=== PATIENT | male | born 1945 | race Caucasian/White ===

== ENCOUNTER → 2022-07-27 11:17 | Outpatient (CLI) | payer MEDICARE, OTHER, SELFPAY ==
[2022-07-27 12:15] LABS: Hematocrit 38.4 % (41-53); Hemoglobin 12.7 g/dL (13.5-17.5); Mean Corpuscular Hemoglobin 29.4 PG (26-34); Mean Corpuscular Volume 88.9 fL (80-100); Platelet Count 205 X10^3/uL (150-400); Red Blood Cell Count 4.32 X10^6/uL (4.5-5.9); Red Cell Distribution Width 13.8 % (11.6-14.8); White Blood Cell Count 4.9 X10^3/uL (4.5-11.0)
[2022-07-27 13:04] LABS: Alanine Aminotransferase 25 IU/L (<50); Albumin 4.3 g/dL (3.5-5.0); Albumin Globulin Ratio 1.3 (1.0-2.8); Alkaline Phosphatase 98 U/L (38-126); Aspartate Aminotransferase 25 IU/L (17-59); BUN Creatinine Ratio 25.7 (6-22); Bilirubin Total 0.3 mg/dL (0.2-1.3); Blood Urea Nitrogen 28 mg/dL (9-20); Calcium 9.5 mg/dL (8.4-10.2); Carbon Dioxide 30 mmol/L (22-32); Chloride 103 mmol/L (98-107); Cholesterol 134 mg/dL (140-199); Estimated Glomerular Filt Rate > 60 mL/min (>60); Globulin 3.4 g/dL (1.7-4.1); Glucose 119 mg/dL (80-110); HDL Cholesterol 65 mg/dL (40-60); HEMOLYSIS < 15 (0-50); LDL Cholesterol Calculated 59 mg/dL (<100); Potassium 5.1 mmol/L (3.4-5.1); Sodium 137 mmol/L (137-145); Total Protein 7.7 g/dL (6.3-8.2); Triglycerides 50 mg/dL (35-150)
[2022-07-27 13:29] LABS: Prostate Specific Antigen Scrn 2.55 ng/mL (0.1-4.0)
[2022-07-27 15:34] LABS: Creatinine Urine Random 42.7 mg/dL
[2022-07-27 15:42] LABS: Microalbumin Urine Random < 0.6 mg/dL (0-1.6)
== END ==
PROVIDERS: PCP Family Medicine; Referring Provider Family Medicine; Visit Provider Family Medicine
DX: E11.9 Type 2 diabetes mellitus without complications (principal); Z12.5 Encounter for screening for malignant neoplasm of prostate
CPT/HCPCS: 36415; 80053; 80061; 82043; 82570; 85027; G0103

== ENCOUNTER 2022-10-15 07:52 | Day surgery (SDC) | payer MEDICARE, OTHER, SELFPAY ==
--- NOTE | 2022-10-15 | PATH_ITS ---
[facility] Accession Number: [id number] No. of containers..01 Tissue . 01 Material submitted: . colon - TRANSVERSE POLYPS . 01 Diagnosis: Transverse Colon Polyps: Serrated lesion, favor sessile serrated adenoma x2. MRV 10/22/2022 1251 Local . 01 Electronically signed: . Jose Schmid MD, PhD, Pathologist NPI- [id number] . 01 Gross description: . TRANSVERSE POLYPS: Received in formalin are 2 fragment(s) of lozano, soft tissue measuring 0.6 x 0.2 x 0.2 cm to 0.4 x 0.2 x 0.2 cm submitted entirely in 1 cassette(s) /[facility] 10/20/2022 1550 Local . 01 Pathologist provided ICD-10: D12.3 . 01 CPT . 783249 Specimen Comment: A courtesy copy of this report has been sent to [phone] Performed at: 01 [facility] [address] [place] [address] [address], [place], [place] [id number] MD Boby Villalobos MD Phone: [phone]
[2022-10-15 08:14] VITALS: BP 128/75; PULSE 83; RESP 17; TEMP 36.3; O2SAT 98; BMI 27.4
[2022-10-15] MEDS: LACTATED RINGERS 1,000 ML 100 ML IV (08:23)
--- NOTE | 2022-10-15 09:14 | P.HP_ITS ---
History of Present Illness History of Present Illness Date Patient Seen: 10/15/22 Time Patient Seen: 09:14 Chief complaint: Colonoscopy Narrative: Miller is a 77-year-old man who is here for a colonoscopy. He has had several in the past and he always has polyps removed. His last was about 5 years ago in [place]. No family history of colon cancer. [facility] Medical History (Updated 10/15/22 @ 09:15 by Teo Rubio MD) Kidney stones Surgical History (Updated 10/15/22 @ 08:13 by Travon Julian RN) Hx of cholecystectomy Social History household members: spouse Smoking Status: Former smoker Tobacco: How many years used: 6 alcohol intake: current substance use type: former substance user and marijuana (long ago ) Meds Home Medications and Allergies Home Medications Medication Instructions Recorded Confirmed Type empagliflozin 25 mg tablet 25 mg PO DAILY 07/24/22 10/15/22 History (Jardiance) pravastatin 20 mg tablet 20 mg PO BEDTIME 07/24/22 07/24/22 History aspirin 81 mg tablet,delayed 81 mg PO DAILY 07/27/22 07/27/22 History release (Adult Aspirin Regimen) blood sugar diagnostic (Blood #100 ea 07/27/22 07/27/22 Rx Glucose Test strips) blood-glucose meter #1 ea 07/27/22 07/27/22 Rx cetirizine 10 mg tablet (Zyrtec) 10 mg PO DAILY PRN 07/27/22 07/27/22 History garlic extract 500 mg capsule 1,000 mg PO QPC 07/27/22 07/27/22 History lancets 33 gauge (BD Ultra Fine #100 ea 07/27/22 07/27/22 Rx Lancets) mecobalamin (vitamin B12) 2,500 mcg PO 07/27/22 07/27/22 History mcg chewable tablet omeprazole 20 mg capsule,delayed 20 mg PO DAILY 07/27/22 07/27/22 History release zinc [Zinc Chelate] PO 07/27/22 07/27/22 History tamsulosin 0.4 mg capsule 0.4 mg PO BEDTIME #90 caps 08/03/22 10/15/22 Rx bupropion HCl 300 mg 24 hr tablet, 300 mg PO DAILY #90 tabs 08/24/22 10/15/22 Rx extended release lisinopril 10 mg tablet 20 mg PO DAILY #90 tabs 08/27/22 10/15/22 Rx sodium sul 1.479 gram-potas ch See Rx Instructions PO PER PKG DIR 09/08/22 Rx 0.188 gram-magnes sul 0.225 gram #24 tabs tablet (Sutab) metformin 500 mg tablet,extended 500 mg PO BID #180 tabs 10/14/22 10/15/22 Rx release 24 hr Allergies Allergy/AdvReac Type Severity Reaction Status Date / Time No Known Drug Allergies Allergy Unverified 07/27/22 09:53 Exam Vital Signs (past 8 hours): - 10/15/22 08:14 Temperature 97.4 F L Pulse Rate 83 Respiratory Rate 17 Blood Pressure 128/75 Pulse Oximetry 98 Const General: healthy appearing Assessment & Plan Assessment and plan (1) History of colon polyps: Status: Acute Plan Miller is a 77-year-old man with a personal history of colon polyps. He is here for a colonoscopy. We reviewed the risks and benefits and he would like to proceed
--- NOTE | 2022-10-15 10:30 | PM.HP.1 ---
History of Present Illness History of Present Illness Chief complaint: Colonoscopy Narrative: Miller is a 77-year-old man who is here for a colonoscopy. He has had several in the past and he always has polyps removed. His last was about 5 years ago in [place]. No family history of colon cancer. [facility] Medical History (Updated 10/15/22 @ 09:15 by Teo Rubio MD) Kidney stones Surgical History (Updated 10/15/22 @ 08:13 by Travon Julian RN) Hx of cholecystectomy Social History household members: spouse Smoking Status: Former smoker Tobacco: How many years used: 6 alcohol intake: current substance use type: former substance user and marijuana (long ago ) Meds Home Medications and Allergies Home Medications Medication Instructions Recorded Confirmed Type empagliflozin 25 mg tablet 25 mg PO DAILY 07/24/22 10/15/22 History (Jardiance) pravastatin 20 mg tablet 20 mg PO BEDTIME 07/24/22 07/24/22 History aspirin 81 mg tablet,delayed 81 mg PO DAILY 07/27/22 07/27/22 History release (Adult Aspirin Regimen) blood sugar diagnostic (Blood #100 ea 07/27/22 07/27/22 Rx Glucose Test strips) blood-glucose meter #1 ea 07/27/22 07/27/22 Rx cetirizine 10 mg tablet (Zyrtec) 10 mg PO DAILY PRN 07/27/22 07/27/22 History garlic extract 500 mg capsule 1,000 mg PO QPC 07/27/22 07/27/22 History lancets 33 gauge (BD Ultra Fine #100 ea 07/27/22 07/27/22 Rx Lancets) mecobalamin (vitamin B12) 2,500 mcg PO 07/27/22 07/27/22 History mcg chewable tablet omeprazole 20 mg capsule,delayed 20 mg PO DAILY 07/27/22 07/27/22 History release zinc [Zinc Chelate] PO 07/27/22 07/27/22 History tamsulosin 0.4 mg capsule 0.4 mg PO BEDTIME #90 caps 08/03/22 10/15/22 Rx bupropion HCl 300 mg 24 hr tablet, 300 mg PO DAILY #90 tabs 08/24/22 10/15/22 Rx extended release lisinopril 10 mg tablet 20 mg PO DAILY #90 tabs 08/27/22 10/15/22 Rx sodium sul 1.479 gram-potas ch See Rx Instructions PO PER PKG DIR 09/08/22 Rx 0.188 gram-magnes sul 0.225 gram #24 tabs tablet (Sutab) metformin 500 mg tablet,extended 500 mg PO BID #180 tabs 10/14/22 10/15/22 Rx release 24 hr Allergies Allergy/AdvReac Type Severity Reaction Status Date / Time No Known Drug Allergies Allergy Unverified 07/27/22 09:53 Exam Vital Signs (past 8 hours): - 10/15/22 08:14 Temperature 97.4 F L Pulse Rate 83 Respiratory Rate 17 Blood Pressure 128/75 Pulse Oximetry 98
--- NOTE | 2022-10-15 10:31 | PM.OP.COLON ---
Operative Date/Time/Diagnoses Date of procedure: 10/15/22 Time of procedure: 10:31 Pre-op diagnosis: Colon cancer screening and personal history of polyps Post-op diagnosis: same Procedure & Clinicians Study performed: Colonoscopy Same procedure as scheduled: Yes Surgeon: Teo Rubio Procedure Notes Procedure in detail: Surgeon: Teo Rubio MD Anesthesia: Estrada Sutton MD Procedure: The patient was brought to the endoscopy suite, placed in left lateral decubitus position. The patient was connected to monitoring devices. A time-out was performed. Sedation was administered. Once the patient was adequately sedated, a digital rectal exam was performed. Prostate was rather enlarged but was smooth with no nodules or irregularity. The scope was then inserted and advanced to the cecum where the appendiceal orifice was identified and photographed. The scope was then slowly withdrawn over greater than 6 minutes. The mucosa was thoroughly inspected. There were 2 polyps in the transverse colon, each about 4 mm, removed with cold snare. There were sent together as ?transverse colon polyps?. The rest of the colon was normal. The scope was retroflexed in the rectum. No other abnormalities were seen. The scope was straightened and removed. The patient was awakened and brought to recovery. Scope withdrawal time: 17 minutes Sedation time: 24 minutes EBL: 2 mL Findings: 2 small polyps in the transverse colon Post-procedure Disposition: PACU
[2022-10-15 10:32] VITALS: BP 103/70; PULSE 75; RESP 12; TEMP 36.1; O2SAT 97
[2022-10-15 10:37] VITALS: BP 104/68; PULSE 82; RESP 12; O2SAT 97
[2022-10-15 10:43] VITALS: BP 120/75; PULSE 79; RESP 16; O2SAT 98
[2022-10-17 11:21] LABS: PSA, Total 3.6 ng/mL (0.0-4.0)
== END 2022-10-15 11:11 | disposition home or self-care (01) ==
PROVIDERS: PCP Family Medicine; Referring Provider Surgery; Visit Provider Surgery
PROC: 0DJD8ZZ Inspection of Lower Intestinal Tract, Via Natural or Artificial Opening Endoscopic (ICD-10-PCS; CPT 45378; principal; 2022-10-15 09:15)
DX: Z12.11 Encounter for screening for malignant neoplasm of colon (principal); Z86.010 Personal history of colon polyps; D12.3 Benign neoplasm of transverse colon
CPT/HCPCS: 45385; 36415; 82962; 84153; 84154; J2704; J3010